=== PATIENT | female | born 1990 | race Hispanic/Latino ===

== ENCOUNTER 2017-01-29 07:52 | Emergency (ER) | payer SELFPAY ==
[2017-01-29 08:19] LABS: #Eosinphils 0.2 thou/uL (0.0-0.7); #Lymphocytes 3.1 thou/uL (1.20-3.40); #Monocytes 0.4 thou/uL (0.11-0.59); #Neutrophils 4.2 thou/uL (1.40-6.50); %Basophils 0.4 % (0.0-1.0); %Eosinophils 2.2 % (0.0-10.0); %Lymphocytes 39.6 % (21.0-51.0); %Monocytes 4.9 % (0.0-10.0); Hematocrit 43.6 % (36.0-47.0); Red Blood Cell (RBC) Count 4.57 mill/uL (4.20-5.40); White Blood Cell (WBC) Count 7.9 thou/uL (4.8-10.8)
[2017-01-29 08:23] LABS: Bilirubin Negative (Negative); Blood, Urine Negative (Negative); Glucose, Urine (Dipstick) Negative (Negative); Ketone, Urine Negative (Negative); Nitrite Negative (Negative); Protein, Urine (Dipstick) Negative (Neg-Trace); Urobilinogen 0.2 mg/dL (0.2-1.0)
[2017-01-29 08:41] LABS: ALT (SGPT) 16 U/L (8-55); AST (SGOT) 15 U/L (5-34); Alkaline Phosphatase 62 U/L (40-150); Anion Gap 10 mmol/L (10-20); BUN (Urea Nitrogen) 9 mg/dL (7.0-18.7); Bilirubin, Total 0.7 mg/dL (0.2-1.2); Calc. Creatinine Clearance 0 mL/min (70-130); Calcium 9.5 mg/dL (7.8-10.44); Carbon Dioxide 27 mmol/L (22-29); Chloride 107 mmol/L (98-107); Estimated GFR-MDRD 81; Globulin 3.7 g/dL (2.4-3.5)
== END 2017-01-29 09:31 | disposition home or self-care (01) ==
LOC: ERS 07:52
DX: A08.4 Viral intestinal infection, unspecified (principal); G43.909 Migraine, unspecified, not intractable, without status migrainosus
CPT/HCPCS: 36415; 80053; 81003; 81025; 85025; 99284

== ENCOUNTER 2017-10-19 13:14 | Emergency (ER) | payer BC, SELFPAY ==
--- NOTE | 2017-10-19 14:02 | RAD ---
PORTABLE CHEST 1 VIEW: Date: 10/19/17 Time: 1319 hours HISTORY: Chest pain. FINDINGS: Comparison made with exam of 07/09/11. The heart size is normal. The lungs are expanded without focal areas of consolidation, pneumothorax, or pleural effusions. IMPRESSION: No radiographic evidence of acute cardiopulmonary process. POS: [facility]
[2017-10-19 14:20] LABS: #Basophils 0.1 thou/uL (0.0-0.2); #Eosinphils 0.1 thou/uL (0.0-0.7); #Lymphocytes 3.1 thou/uL (1.20-3.40); #Monocytes 0.5 thou/uL (0.11-0.59); #Neutrophils 3.9 thou/uL (1.40-6.50); %Basophils 0.6 % (0.0-1.0); %Eosinophils 1.9 % (0.0-10.0); %Lymphocytes 40.7 % (21.0-51.0); %Monocytes 6.3 % (0.0-10.0); %Neutrophils 50.5 % (42.0-75.0); Mean Corpuscular HGB CONC 34.8 g/dL (32.0-36.0); Mean Corpuscular Hemoglobin 32.4 pg (27.0-31.0); Mean Corpuscular Volume 93.1 fL (78.0-98.0); Mean Platelet Volume 6.9 fL (7.4-10.4); Platelet Count 318 thou/uL (130-400); RBC Distribution Width 11.9 % (11.5-14.5); Red Blood Cell (RBC) Count 4.33 mill/uL (4.20-5.40); White Blood Cell (WBC) Count 7.7 thou/uL (4.8-10.8)
[2017-10-19 14:24] LABS: Bilirubin Negative (Negative); Blood, Urine Small (Negative); Clarity CLEAR (Clear); Glucose, Urine (Dipstick) Negative (Negative); Leukocyte Trace (Negative); Nitrite Negative (Negative); Protein, Urine (Dipstick) Negative (Neg-Trace); Specific Gravity, Urine 1.013 (1.002-1.036); Urobilinogen 0.2 mg/dL (0.2-1.0); pH, Urine 6.5 (5.0-9.0)
[2017-10-19 14:25] LABS: Pregnancy Test - Urine (BHCG) Negative (Negative); Pregu Control Background? CLEAR/WHITE (CLR/WHITE); Pregu Control Bar Appear? YES (CONTROL BAR); Specific Gravity 1.013 (1.002-1.036)
[2017-10-19 14:33] LABS: Bacteria/HPF 1+ HPF (None Seen); Hyaline Casts/LPF 0-3 HYALINE CAST LPF (0-3 Hyaline); Pathc Cast-AUWi Flag 0.14 (0-2.49); RBC/HPF 0-3 HPF (0-3)
[2017-10-19 14:43] LABS: ALT (SGPT) 15 U/L (8-55); AST (SGOT) 13 U/L (5-34); Albumin 4.1 g/dL (3.5-5.0); Alkaline Phosphatase 66 U/L (40-150); Anion Gap 12 mmol/L (10-20); BUN (Urea Nitrogen) 9 mg/dL (7.0-18.7); Bilirubin, Total 0.4 mg/dL (0.2-1.2); CK (CPK) 56 U/L (29-168); Calc. Creatinine Clearance 0 mL/min (70-130); Calcium 9.1 mg/dL (7.8-10.44); Carbon Dioxide 20 mmol/L (22-29); Chloride 108 mmol/L (98-107); Estimated GFR-MDRD 87; Globulin 3.3 g/dL (2.4-3.5); Glucose 94 mg/dL (70-105); Potassium 3.7 mmol/L (3.5-5.1); Protein, Total 7.4 g/dL (6.0-8.3); Sodium 136 mmol/L (136-145)
[2017-10-19 14:46] LABS: CKMB 0.5 ng/mL (0-6.6); Troponin I Less than 0.010 ng/mL (< 0.028)
[2017-10-19] MEDS ORDERED: Ketorolac Tromethamine 60 MG/2 ML VIAL ONE (15:30)
--- NOTE | 2017-11-03 16:02 | EKG ---
Test Reason : Blood Pressure : / mmHG Vent. Rate : 068 BPM Atrial Rate : 068 BPM P-R Int : 152 ms QRS Dur : 094 ms QT Int : 396 ms P-R-T Axes : 026 -14 -01 degrees QTc Int : 421 ms Normal sinus rhythm Incomplete right bundle branch block Voltage criteria for left ventricular hypertrophy Abnormal ECG Confirmed by FE WEISS, CRUZITO ([id number]), desk editor SUDHA WARREN ([id number]) on 11/03/2017 4:02:13 PM Referred By: Confirmed By:CRUZITO MIRAMONTES MD
== END 2017-10-19 16:00 | disposition home or self-care (01) ==
LOC: ERS 13:14
DX: M94.0 Chondrocostal junction syndrome [Tietze] (principal); G43.909 Migraine, unspecified, not intractable, without status migrainosus
CPT/HCPCS: 36415; 71045; 80053; 81003; 81015; 81025; 82553; 84484; 85025; 93005; 94760; 96372; J1885

== ENCOUNTER 2019-01-24 22:44 | Emergency (ER) | payer BC ==
[2019-01-24] MEDS ORDERED: Proparacaine 0.5% Opth 15 ML BOT ONE (23:06)
[2019-01-24] MEDS ORDERED: Fluorescein Opthalmic Strip ONE (23:06)
== END 2019-01-24 23:42 | disposition home or self-care (01) ==
LOC: ERS 22:44
DX: H11.421 Conjunctival edema, right eye (principal); G43.909 Migraine, unspecified, not intractable, without status migrainosus

== ENCOUNTER 2019-11-13 12:08 | Emergency (ER) | payer BC, OTHER ==
[2019-11-13 18:08] LABS: SARS-CoV-2 MS2 Positive; SARS-CoV-2 N Gene Negative; SARS-CoV-2 S Gene Negative; SARS-CoV-2 by NAA Not Detected (NotDetected); SARS-CoV-2 orf1ab Negative
== END 2019-11-13 12:30 | disposition home or self-care (01) ==
LOC: ERS 12:08
DX: R05 Cough (principal); Z20.828 Contact with and (suspected) exposure to other viral communicable diseases; G43.909 Migraine, unspecified, not intractable, without status migrainosus
CPT/HCPCS: 87635; 99283; U0003

== ENCOUNTER 2020-06-24 15:23 | Emergency (ER) | payer OTHER ==
[2020-06-24 16:07] LABS: #Basophils 0.1 thou/uL (0.0-0.2); #Eosinphils 0.2 thou/uL (0.0-0.7); #Lymphocytes 3.6 thou/uL (1.20-3.40); #Monocytes 0.7 thou/uL (0.11-0.59); #Neutrophils 5.2 thou/uL (1.40-6.50); %Basophils 0.7 % (0.0-1.0); %Eosinophils 1.8 % (0.0-10.0); %Monocytes 6.8 % (0.0-10.0); %Neutrophils 53.6 % (42.0-75.0); Mean Corpuscular HGB CONC 34.1 g/dL (32.0-36.0); Mean Corpuscular Hemoglobin 32.2 pg (27.0-31.0); Mean Corpuscular Volume 94.3 fL (78.0-98.0); Mean Platelet Volume 7.4 fL (7.4-10.4); Platelet Count 347 thou/uL (130-400); RBC Distribution Width 11.6 % (11.5-14.5); Red Blood Cell (RBC) Count 4.36 mill/uL (4.20-5.40); White Blood Cell (WBC) Count 9.7 thou/uL (4.8-10.8)
[2020-06-24 16:19] LABS: BHCG - Serum Negative (NEGATIVE); Pregs Control Background? CLEAR/WHITE (CLR/WHITE); Pregs Control Bar Appear? YES (CONTROL BAR)
[2020-06-24 16:24] LABS: ALT (SGPT) 20 U/L (8-55); AST (SGOT) 14 U/L (5-34); Albumin 4.1 g/dL (3.5-5.0); Alkaline Phosphatase 70 U/L (40-110); Anion Gap 13 mmol/L (10-20); BUN (Urea Nitrogen) 11 mg/dL (7.0-18.7); Bilirubin, Total 0.4 mg/dL (0.2-1.2); Calc. Creatinine Clearance 0 mL/min (70-130); Carbon Dioxide 25 mmol/L (22-29); Chloride 106 mmol/L (98-107); Globulin 3.5 g/dL (2.4-3.5); Glucose 97 mg/dL (70-105); Lipase 40 U/L (8-78); Potassium 4.1 mmol/L (3.5-5.1); Protein, Total 7.6 g/dL (6.0-8.3); Sodium 140 mmol/L (136-145)
== END 2020-06-24 17:50 | disposition home or self-care (01) ==
LOC: ERS 15:23
DX: N93.9 Abnormal uterine and vaginal bleeding, unspecified (principal); R10.2 Pelvic and perineal pain
CPT/HCPCS: 36415; 80053; 83690; 84703; 85025; 99284

== ENCOUNTER 2020-07-14 06:50 | Emergency (ER) | payer OTHER | END 2020-07-14 07:31 | disposition home or self-care (01) | LOC: ERS 06:50 | DX: H01.004 Unspecified blepharitis left upper eyelid (principal) | CPT/HCPCS: 99282 ==

== ENCOUNTER 2020-11-24 18:24 | Emergency (ER) | payer BC ==
[2020-11-24] MEDS ORDERED: Acetaminophen 500 MG TAB ONE (19:06)
[2020-11-25 13:37] LABS: SARS-CoV-2 PCR by NAA DETECTED (NotDetected)
== END 2020-11-24 20:07 | disposition home or self-care (01) ==
LOC: ERS 18:24
DX: U07.1 COVID-19 (principal); J12.82 Pneumonia due to coronavirus disease 2019
CPT/HCPCS: 71045; U0003; U0005

== ENCOUNTER 2020-11-27 07:32 | Emergency (ER) | payer BC ==
[2020-11-27] MEDS ORDERED: Acetaminophen/Codeine 30-300mg Tablet ONE (08:46)
[2020-11-27] MEDS ORDERED: Albuterol 200 PUFF (6.7GM INHALER) ONE (09:18)
== END 2020-11-27 08:55 | disposition home or self-care (01) ==
LOC: ERS 07:32
DX: U07.1 COVID-19 (principal); J12.82 Pneumonia due to coronavirus disease 2019
CPT/HCPCS: 71045; 93005; 94760

== ENCOUNTER 2022-04-21 08:45 | Observation (INO) | payer BC, OTHER, SELFPAY ==
[2022-04-21] MEDS ORDERED: Metoclopramide HCl 10 MG/2 ML VIAL ONE (09:35)
[2022-04-21] MEDS ORDERED: diphenhydrAMINE 50 MG/ML VIAL ONE (09:35)
[2022-04-21 09:43] LABS: #Basophils 0.1 thou/uL (0.0-0.2); #Eosinphils 0.2 thou/uL (0.0-0.7); #Lymphocytes 3.4 thou/uL (1.20-3.40); #Monocytes 0.6 thou/uL (0.11-0.59); %Basophils 1.3 % (0.0-1.0); %Eosinophils 2.7 % (0.0-10.0); %Lymphocytes 40.8 % (21.0-51.0); %Monocytes 6.7 % (0.0-10.0); %Neutrophils 48.6 % (42.0-75.0); Hemoglobin 13.8 g/dL (12.0-16.0); Mean Corpuscular HGB CONC 33.9 g/dL (32.0-36.0); Mean Corpuscular Hemoglobin 32.4 pg (27.0-31.0); Mean Corpuscular Volume 95.4 fl (78.0-98.0); Mean Platelet Volume 7.8 fL (7.4-10.4); Platelet Count 334 10x3/uL (130-400); RBC Distribution Width 11.6 % (11.5-14.5); Red Blood Cell (RBC) Count 4.26 mill/uL (4.20-5.40); White Blood Cell (WBC) Count 8.3 10x3/uL (4.8-10.8)
[2022-04-21 10:04] LABS: ALT (SGPT) 20 U/L (8-55); AST (SGOT) 13 U/L (5-34); Albumin 4.3 g/dL (3.5-5.0); Alkaline Phosphatase 61 U/L (40-110); Anion Gap 12 mmol/L (10-20); BUN (Urea Nitrogen) 8 mg/dL (7.0-18.7); Bilirubin, Total 0.5 mg/dL (0.2-1.2); Calc. Creatinine Clearance 0 mL/min (70-130); Calcium 9.5 mg/dL (7.8-10.44); Carbon Dioxide 26 mmol/L (22-29); Chloride 107 mmol/L (98-107); Estimated GFR 103; Globulin 3.1 g/dL (2.4-3.5); Glucose 92 mg/dL (70-105); Potassium 4.1 mmol/L (3.5-5.1); Protein, Total 7.4 g/dL (6.0-8.3); Sodium 141 mmol/L (136-145)
[2022-04-21 10:25] LABS: Pregnancy Test - Urine (BHCG) Negative (Negative); Pregu Control Background? CLEAR/WHITE (CLR/WHITE); Pregu Control Bar Appear? YES (CONTROL BAR); Specific Gravity 1.021 (1.002-1.036)
[2022-04-21] MEDS ORDERED: Aspirin Chewable 81 MG TAB ONE (10:31)
[2022-04-21] MEDS ORDERED: Iopamidol-370 76% 500 ML 1 ML ONE (12:00)
== END 2022-04-21 12:04 | disposition home or self-care (01) ==
LOC: ERS 08:45 → ERHOLD 11:31
PROVIDERS: ADMIT Internal Medicine; ATTEND Internal Medicine
DX: R53.1 Weakness (principal); R42 Dizziness and giddiness; R20.2 Paresthesia of skin; Z88.8 Allergy status to other drugs, medicaments and biological substances
CPT/HCPCS: 36416; 70450; 70496; 70498; 80053; 81025; 84484; 85025; 93005; 96365; 96366; 96375; G0378; J1200; J2765; Q9967